=== PATIENT | male | born 1940 | race Caucasian/White ===

== ENCOUNTER → 2016-04-13 | Outpatient (CLI) | payer MEDICARE ==
[~2016-04-13] MED LIST: AMLO10TA82 PO; ASPI-345 PO; ATN25T PO; BICA50TA PO; GLMP2T PO; HCT25T PO; LEUP1KIT; LOSA100T8 PO; MELO-249 PO; NAPR550T PO; PIOG15TA3 PO; SIMV40TA2 PO
== END ==
LOC: LAB 07:55
PROVIDERS: ATTEND Internal Medicine
DX: E11.9 Type 2 diabetes mellitus without complications (principal); R70.0 Elevated erythrocyte sedimentation rate
CPT/HCPCS: 36415; 83036; 85652

== ENCOUNTER → 2016-04-18 | Outpatient (CLI) | payer MEDICARE | LOC: LAB 08:32 | PROVIDERS: ATTEND Internal Medicine Hematology & Oncology | DX: C61 Malignant neoplasm of prostate (principal) | CPT/HCPCS: 36415; 82310 ==

== ENCOUNTER → 2016-04-28 | Outpatient (CLI) | payer MEDICARE | LOC: LAB 11:18 | PROVIDERS: ATTEND Physician Assistant | DX: M25.561 Pain in right knee (principal); M25.562 Pain in left knee; R70.0 Elevated erythrocyte sedimentation rate | CPT/HCPCS: 36415; 86140 ==

== ENCOUNTER → 2016-07-15 | Outpatient (CLI) | payer MEDICARE ==
[2016-07-15 10:36] LABS: MEAN CORPUSCULAR HEMOGLOBIN 31.1 PG (26.0-34.0); MEAN CORPUSCULAR HGB CONC 34.1 g/dL (31.0-37.0); MEAN CORPUSCULAR VOLUME 91 FL (80-100); PLATELET COUNT 212 10^3uL (150-450); WHITE BLOOD COUNT 5.15 10^3uL (4.0-11.0)
[2016-07-15 10:37] LABS: ALBUMIN 4.1 g/dL (3.4-5.0); ALKALINE PHOSPHATASE 100 U/L (38-126); ANION GAP 17.7 MEQ/L (3-15); BUN/CREATININE RATIO 23 (10-20); MAGNESIUM* 1.6 mg/dL (1.6-2.3); PHOSPHORUS 4.2 mg/dL (2.4-4.9); TOTAL PROTEIN 7.5 g/dL (6.4-8.5)
[2016-07-15 14:32] LABS: BAND NEUTROPHILS % 0 % (0-6); EOSINOPHILS % 3 % (0-4); LYMPHOCYTES # 1.2 #; MONOCYTES # 0.3 #; MONOCYTES % 5 % (3-11); RBC MORPH NORMAL (NORMAL); SEGMENTED NEUTROPHILS % 69 % (51-67); TOTAL CELLS COUNTED 100
== END ==
LOC: LAB 10:05
PROVIDERS: ATTEND Internal Medicine Hematology & Oncology
DX: C61 Malignant neoplasm of prostate (principal)
CPT/HCPCS: 36415; 80053; 83615; 83735; 84100; 84153; 85007; 85027

== ENCOUNTER 2016-08-11 13:42 | Outpatient (RCR) | payer MEDICARE ==
--- NOTE | 2016-07-06 11:37 | PT/OT/ST INITIAL EVALUATION ---
Department of Health and Human Services Form Approved Health Care Financing Administration OMB No. [id number] PLAN OF CARE/ASSESSMENT FOR OUTPATIENT REHABILITATION (Complete for Initial Claims Only) 1. PATIENT'S NAME Levar Radford 2. ACC # [id number] 3. [facility] [id number] 4. PROVIDER NO. [id number] 5. TYPE: PT 6. PRIOR HOSPITALIZATION None 7. PRIMARY DX Chronic bilateral knee pain 8. SECONDARY DX Patella and quadriceps tendonitis 9. ONSET DATE 2 years ago 10. REFERRAL DATE 06/29/2016 11. SOC. DATE 06/30/2016 12. TIME OF EVAL 13:[address] Khanh Hobbs 13. CHARGES/UNITS Evaluation, manual therapy and TherEx. 14. G CODES CK for mobility 15. PRIOR LEVEL OF FUNCTION; PERTINENT HISTORY (Prior therapy results, reason for referral.) S: Reason for Therapy: The patient was referred to physical therapy by Dr. Hobbs with chronic bilateral knee pain. The patient reports that he has been experiencing pain at his knees for approximately 2 years. The patient notes that he has pain with prolonged standing and walking. He does have some peripheral neuropathy at his lower legs and into his feet that is pretty constant. The patient notes that he will have pain at his knees if he walks greater than 100 feet. The patient is able to ride a recumbent bike for 25 minutes every day without any type of pain. The patient describes the pain as being at the inside of his knee, right knee greater than left. Occupational and social health history: He is retired. Pain level: Current pain rating is 6/10. 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 Back surgery 1 year ago. He has had a stent at his right lower leg. He has had his veins and arteries checked at his left lower legs. He has undergone 2 epidurals at his low back. The patient does have diabetes and peripheral neuropathy. The patient has also undergone bilateral carpal tunnel and rotator cuff repair. The patient had prostate cancer in 1989. Personal health rating: He rates his overall health as good. Patient's Goal: The patient's goal for therapy is less pain. 16. INITIAL ASSESSMENT/SAFETY PRECAUTIONS/MEDICAL COMPLICATIONS (Level of function at start of care. Be specific, use objective measures, list problems.) O: APPEARANCE AND OBSERVATION: The patient is a healthy looking 75-year-old male. He demonstrates forward head posture, mild rounded shoulders and slight sway-back posture with posterior pelvic tilt. Decreased lumbar lordosis. In standing, he demonstrates good overall foot alignment and knee alignment. No significant asymmetry is noted when walking. The patient does have mild difficulty going from sitting to standing. He also notes increased pain going up stairs. PALPATION: The patient has tenderness to palpation along his patellar tendon and quad tendon, right knee greater than left. ASSESSMENTS: Lower extremity functional index score was 37/80. RANGE OF MOTION/FLEXIBILITY: Right knee -3 degrees from terminal knee extension to 124 degrees flexion. Left knee -4 degrees from terminal knee extension to 134 degrees flexion. Bilateral hamstring flexibility 40 degrees. STRENGTH: Right hip flexion 4/5 manual muscle test, left 4+/5 manual muscle test. Knee extension right 4+/5 manual muscle test, left 5/5 manual muscle test. Bilateral knee flexion 5/5 manual muscle test. Ankle dorsiflexion right 4+/5 manual muscle test, left 4/5 manual muscle test. TODAY'S TREATMENT: Treatment included initial evaluation followed by instruction on home exercise program. Treatment also included ASTYM manual therapy to bilateral ankles, lower legs, knees and thighs. 17. INITIAL POC: (Specify procedures, modalities, short and shelter goals) A: The patient presents with bilateral patella and quad tendonitis. PROGNOSIS: The patient is a good candidate for physical therapy to regain flexibility and strength at knees and lower extremities. SHORT TERM GOALS: 1. The patient to be independent and compliant with home exercise program in 1 week. 2. The patient to attain 10 degrees improvement in knee flexion in 4 weeks. 3. The patient to report 50% less pain at his knees when standing and walking in 6 weeks. 4. The patient to be able to ascend and descend stairs without pain at his knees in 6 weeks. 5. The patient to report a 15 point improvement on the Lower Extremity Functional Index score in 8 weeks. P: The patient will be seen 2 times a week over the next 6 weeks. Treatment to include modalities and therapeutic exercise. We will continue to progress the patient with home exercise program and educate on overall diagnosis. 18. FREQUENCY 2 times a week 19. DURATION 6 weeks 20. FUNCTIONAL LEVEL (End of claim period) 21. PHYSICIAN SIGNATURE ? ON FILE OR ENTER HERE: 22. DATE: I certify the need for these services furnished under this plan of care and if for partial hospitalization. 23. CERTIFICATION FROM THROUGH FORM [id number]
== END 2016-08-29 12:05 | disposition home or self-care (01) ==
LOC: PT 13:42
PROVIDERS: ATTEND Internal Medicine
DX: M25.561 Pain in right knee (principal); M25.562 Pain in left knee
CPT/HCPCS: 97110; 97140; 97161; G8978; G8979; G8980